=== PATIENT | male | born 1985 | race Asian ===

== ENCOUNTER 2020-01-17 14:50 | Emergency (ER) | payer OTHER ==
[~2020-01-17] VITALS: Ht 170.2 cm; Wt 81.6 kg
[2020-01-17 14:52] VITALS: BP 131/84
--- NOTE | 2020-01-17 15:27 | NUR ---
Patient discharged to home in stable condition. Written and verbal after care instructions given. Patient verbalizes understanding of instruction.
== END 2020-01-17 15:27 | disposition home or self-care (01) ==
LOC: ER 14:55
DX: Z03.818 Encounter for observation for suspected exposure to other biological agents ruled out (principal)
CPT/HCPCS: 99283; U0003

== ENCOUNTER 2020-03-14 16:57 | Emergency (ER) | payer OTHER ==
[~2020-03-14] VITALS: Ht 170.2 cm; Wt 81.6 kg
[2020-03-14 17:02] VITALS: BP 135/84
--- NOTE | 2020-03-14 17:10 | NUR ---
COVID SWAB OBTAINED AND SENT TO LAB.
--- NOTE | 2020-03-14 17:21 | NUR ---
Patient discharged to home in stable condition. Written and verbal after care instructions given. Patient verbalizes understanding of instruction.
== END 2020-03-14 17:22 | disposition home or self-care (01) ==
LOC: ER 17:03
DX: Z11.59 Encounter for screening for other viral diseases (principal)
CPT/HCPCS: 99283; C9803; U0003

== ENCOUNTER 2020-03-20 16:56 | Emergency (ER) | payer OTHER ==
[~2020-03-20] VITALS: Ht 170.2 cm; Wt 81.6 kg
[2020-03-20 16:57] VITALS: BP 132/80
--- NOTE | 2020-03-20 17:42 | NUR ---
Patient discharged to home in stable condition. Written and verbal after care instructions given. Patient verbalizes understanding of instruction. Pt ambulatory with a steady gait
== END 2020-03-20 17:43 | disposition home or self-care (01) ==
LOC: ER 16:56
DX: Z11.59 Encounter for screening for other viral diseases (principal)
CPT/HCPCS: 99283; C9803; U0003

== ENCOUNTER 2020-03-29 12:03 | Emergency (ER) | payer OTHER ==
[~2020-03-29] VITALS: Ht 170.2 cm; Wt 81.6 kg
[2020-03-29 12:15] VITALS: BP 137/79
== END 2020-03-29 13:01 | disposition home or self-care (01) ==
LOC: ER 12:04
DX: Z11.59 Encounter for screening for other viral diseases (principal)
CPT/HCPCS: 99283; C9803; U0003

== ENCOUNTER 2020-04-08 14:15 | Emergency (ER) | payer OTHER ==
[~2020-04-08] VITALS: Ht 170.2 cm; Wt 81.6 kg
[2020-04-08 14:18] VITALS: BP 128/84
--- NOTE | 2020-04-08 14:55 | NUR ---
COVID SWAB OBTAINED AND SENT TO LAB.
--- NOTE | 2020-04-08 14:56 | NUR ---
Patient discharged to home in stable condition. Written and verbal after care instructions given. Patient verbalizes understanding of instruction.
== END 2020-04-08 14:56 | disposition home or self-care (01) ==
LOC: ER 14:18
DX: Z20.828 Contact with and (suspected) exposure to other viral communicable diseases (principal)
CPT/HCPCS: 99283; C9803; U0003

== ENCOUNTER 2020-04-20 10:47 | Emergency (ER) | payer OTHER ==
[~2020-04-20] VITALS: Ht 170.2 cm; Wt 81.6 kg
[2020-04-20 10:54] VITALS: BP 124/74
== END 2020-04-20 11:20 | disposition home or self-care (01) ==
LOC: ER 10:50
DX: Z20.828 Contact with and (suspected) exposure to other viral communicable diseases (principal)
CPT/HCPCS: 99283; C9803; U0003

== ENCOUNTER 2020-04-25 10:39 | Emergency (ER) | payer OTHER ==
[~2020-04-25] VITALS: Ht 170.2 cm; Wt 81.6 kg
[2020-04-25 10:42] VITALS: BP 132/60
--- NOTE | 2020-04-25 10:50 | NUR ---
COVID SPECIMEN OBTAINED AND SENT TO LAB.
--- NOTE | 2020-04-25 10:55 | NUR ---
Patient discharged to home in stable condition. Written and verbal after care instructions given. Patient verbalizes understanding of instruction.
== END 2020-04-25 11:02 | disposition home or self-care (01) ==
LOC: ER 10:41
DX: Z20.828 Contact with and (suspected) exposure to other viral communicable diseases (principal)
CPT/HCPCS: 99283; C9803; U0003

== ENCOUNTER 2020-05-14 14:25 | Emergency (ER) | payer OTHER ==
[~2020-05-14] VITALS: Ht 170.2 cm; Wt 81.6 kg
[2020-05-14 14:31] VITALS: BP 120/70
--- NOTE | 2020-05-14 15:18 | NUR ---
COVID SWAB SENT
--- NOTE | 2020-05-14 15:18 | NUR ---
Patient discharged to home in stable condition. Written and verbal after care instructions given. Patient verbalizes understanding of instruction. Patient received verbal discharge instructions.
== END 2020-05-14 15:19 | disposition home or self-care (01) ==
LOC: ER 14:25
DX: Z20.828 Contact with and (suspected) exposure to other viral communicable diseases (principal)
CPT/HCPCS: 99283; C9803; U0003

== ENCOUNTER 2020-05-23 15:51 | Emergency (ER) | payer OTHER ==
[~2020-05-23] VITALS: Ht 157.5 cm; Wt 81.6 kg
[2020-05-23 16:00] VITALS: BP 127/71
== END 2020-05-23 18:14 | disposition home or self-care (01) ==
LOC: ER 15:55
DX: Z20.828 Contact with and (suspected) exposure to other viral communicable diseases (principal)
CPT/HCPCS: 99283; C9803; U0003

== ENCOUNTER 2020-05-29 08:59 | Emergency (ER) | payer OTHER ==
[~2020-05-29] VITALS: Ht 170.2 cm; Wt 81.6 kg
[2020-05-29 09:02] VITALS: BP 135/71
== END 2020-05-29 09:30 | disposition home or self-care (01) ==
LOC: ER 09:02
DX: Z20.828 Contact with and (suspected) exposure to other viral communicable diseases (principal)
CPT/HCPCS: 99283; C9803; U0003

== ENCOUNTER 2020-06-06 09:10 | Emergency (ER) | payer OTHER ==
[~2020-06-06] VITALS: Ht 170.2 cm; Wt 81.6 kg
[2020-06-06 09:27] VITALS: BP 131/80
== END 2020-06-06 09:51 | disposition home or self-care (01) ==
LOC: ER 09:17
DX: Z20.828 Contact with and (suspected) exposure to other viral communicable diseases (principal)
CPT/HCPCS: 99283; C9803; U0003

== ENCOUNTER 2020-06-11 16:08 | Emergency (ER) | payer OTHER ==
[~2020-06-11] VITALS: Ht 170.2 cm; Wt 81.6 kg
[2020-06-11 16:12] VITALS: BP 135/74
== END 2020-06-11 16:25 | disposition home or self-care (01) ==
LOC: ER 16:12
DX: Z20.828 Contact with and (suspected) exposure to other viral communicable diseases (principal)
CPT/HCPCS: 99283; C9803; U0003

== ENCOUNTER 2020-06-19 16:03 | Emergency (ER) | payer OTHER ==
[~2020-06-19] VITALS: Ht 170.2 cm; Wt 81.6 kg
[2020-06-19 16:09] VITALS: BP 128/75
--- NOTE | 2020-06-19 16:28 | NUR ---
COVID SWAB DONE AND SENT TO LAB
--- NOTE | 2020-06-19 16:43 | NUR ---
Donte yuen in ED - 06/19/20 at 1644 by SYLVIE Patient discharged to home in stable condition. Written and verbal after care instructions given. Patient verbalizes understanding of instruction.(ambulatory with a steady gait
--- NOTE | 2020-06-19 16:44 | NUR ---
Patient discharged to home in stable condition. Written and verbal after care instructions given. Patient verbalizes understanding of instruction. Pt ambulatory with a steady gait
== END 2020-06-19 16:44 | disposition home or self-care (01) ==
LOC: ER 16:03
DX: Z20.828 Contact with and (suspected) exposure to other viral communicable diseases (principal)
CPT/HCPCS: 99283; C9803; U0003

== ENCOUNTER 2020-07-05 08:42 | Emergency (ER) | payer OTHER ==
[~2020-07-05] VITALS: Ht 170.2 cm; Wt 81.6 kg
[2020-07-05 08:45] VITALS: BP 132/80
== END 2020-07-05 09:00 | disposition home or self-care (01) ==
LOC: ER 08:43
DX: Z20.828 Contact with and (suspected) exposure to other viral communicable diseases (principal)
CPT/HCPCS: 99283; C9803; U0003

== ENCOUNTER 2020-07-12 08:05 | Emergency (ER) | payer OTHER ==
[~2020-07-12] VITALS: Ht 170.2 cm; Wt 81.6 kg
[2020-07-12 08:07] VITALS: BP 130/84
== END 2020-07-12 08:29 | disposition home or self-care (01) ==
LOC: ER 08:06
DX: Z20.828 Contact with and (suspected) exposure to other viral communicable diseases (principal)
CPT/HCPCS: 99283; C9803; U0003

== ENCOUNTER 2020-07-17 09:47 | Emergency (ER) | payer OTHER ==
[~2020-07-17] VITALS: Ht 170.2 cm; Wt 81.6 kg
[2020-07-17 09:47] VITALS: BP 134/82
--- NOTE | 2020-07-17 10:15 | NUR ---
COVID SWAB SENT. Patient discharged to home in stable condition. Written and verbal after care instructions given. Patient verbalizes understanding of instruction.
== END 2020-07-17 10:15 | disposition home or self-care (01) ==
LOC: ER 09:49
DX: Z20.828 Contact with and (suspected) exposure to other viral communicable diseases (principal)
CPT/HCPCS: 99283; C9803; U0003

== ENCOUNTER 2020-07-24 10:02 | Emergency (ER) | payer OTHER ==
[~2020-07-24] VITALS: Ht 170.2 cm; Wt 81.6 kg
[2020-07-24 10:06] VITALS: BP 137/76
--- NOTE | 2020-07-24 10:32 | NUR ---
Patient discharged to home in stable condition. Written and verbal after care instructions given. Patient verbalizes understanding of instruction.
== END 2020-07-24 10:32 | disposition home or self-care (01) ==
LOC: ER 10:03
DX: Z20.828 Contact with and (suspected) exposure to other viral communicable diseases (principal)
CPT/HCPCS: 99283; C9803; U0003

== ENCOUNTER 2020-08-05 15:52 | Emergency (ER) | payer OTHER ==
[~2020-08-05] VITALS: Ht 170.2 cm; Wt 79.4 kg
[2020-08-05 15:57] VITALS: BP 131/71
--- NOTE | 2020-08-05 16:41 | NUR ---
covid swab test collected and sent to the lab.
--- NOTE | 2020-08-05 16:45 | NUR ---
Patient discharged to home in stable condition. Written and verbal after care instructions given. Patient verbalizes understanding of instruction.
--- NOTE | 2020-08-06 22:44 | NUR ---
LAB CALLED REGARDING NEGATIVE COVID RESULT
== END 2020-08-05 16:45 | disposition home or self-care (01) ==
LOC: ER 16:00
DX: Z20.828 Contact with and (suspected) exposure to other viral communicable diseases (principal)
CPT/HCPCS: 99283; C9803; U0003

== ENCOUNTER 2020-08-11 15:24 | Emergency (ER) | payer OTHER ==
[~2020-08-11] VITALS: Ht 170.2 cm; Wt 79.4 kg
[2020-08-11 15:31] VITALS: BP 125/72
--- NOTE | 2020-08-11 16:15 | NUR ---
covid swab done and sent to lab
--- NOTE | 2020-08-11 16:15 | NUR ---
Patient discharged to home in stable condition. Written and verbal after care instructions given. Patient verbalizes understanding of instruction. Pt ambulatory with a steady gait
== END 2020-08-11 16:17 | disposition home or self-care (01) ==
LOC: ER 15:24
DX: Z20.828 Contact with and (suspected) exposure to other viral communicable diseases (principal)
CPT/HCPCS: 99283; C9803; U0003

== ENCOUNTER 2020-08-18 18:18 | Emergency (ER) | payer OTHER ==
[~2020-08-18] VITALS: Ht 170.2 cm; Wt 81.6 kg
[2020-08-18 18:31] VITALS: BP 130/70
--- NOTE | 2020-08-18 18:52 | NUR ---
Patient discharged to home in stable condition. Written and verbal after care instructions given. Patient verbalizes understanding of instruction.
== END 2020-08-18 18:51 | disposition home or self-care (01) ==
LOC: ER 18:19
DX: Z20.828 Contact with and (suspected) exposure to other viral communicable diseases (principal)
CPT/HCPCS: 99283; C9803; U0003

== ENCOUNTER 2020-08-30 17:27 | Emergency (ER) | payer OTHER ==
[~2020-08-30] VITALS: Ht 170.2 cm; Wt 81.6 kg
[2020-08-30 17:32] VITALS: BP 135/79
== END 2020-08-30 17:39 | disposition home or self-care (01) ==
LOC: ER 17:27
DX: Z20.822 Contact with and (suspected) exposure to COVID-19 (principal)
CPT/HCPCS: 99283; C9803; U0003

== ENCOUNTER → 2020-08-30 | Emergency (ER) | payer OTHER | END | disposition left against medical advice (07) | LOC: ER 17:55 | DX: Z75.3 Unavailability and inaccessibility of health-care facilities (principal) ==

== ENCOUNTER 2020-09-06 17:21 | Emergency (ER) | payer OTHER ==
[~2020-09-06] VITALS: Ht 172.7 cm; Wt 86.2 kg
[2020-09-06 17:25] VITALS: BP 134/77
--- NOTE | 2020-09-06 18:51 | NUR ---
COVID SWAB SENT. Patient discharged to home in stable condition. Written and verbal after care instructions given. Patient verbalizes understanding of instruction.
== END 2020-09-06 18:52 | disposition home or self-care (01) ==
LOC: ER 17:23
DX: Z20.822 Contact with and (suspected) exposure to COVID-19 (principal)
CPT/HCPCS: 99283; C9803; U0003

== ENCOUNTER 2020-09-08 16:40 | Emergency (ER) | payer OTHER ==
[~2020-09-08] VITALS: Ht 165.1 cm; Wt 85.7 kg
[2020-09-08 16:48] VITALS: BP 134/81
--- NOTE | 2020-09-08 16:54 | NUR ---
COVID SWAB SENT. Patient discharged to home in stable condition. Written and verbal after care instructions given. Patient verbalizes understanding of instruction.
== END 2020-09-08 16:55 | disposition home or self-care (01) ==
LOC: ER 16:41
DX: Z20.822 Contact with and (suspected) exposure to COVID-19 (principal)
CPT/HCPCS: 99283; C9803; U0003

== ENCOUNTER 2020-09-28 16:10 | Emergency (ER) | payer OTHER ==
[~2020-09-28] VITALS: Ht 170.2 cm; Wt 81.6 kg
[2020-09-28 16:12] VITALS: BP 123/59
--- NOTE | 2020-09-28 16:35 | NUR ---
COVID SWAB DONE AND SENT TO LAB
--- NOTE | 2020-09-28 16:36 | NUR ---
Patient discharged to home in stable condition. Written and verbal after care instructions given. Patient verbalizes understanding of instruction. Pt ambulatory with a steady gait
== END 2020-09-28 16:36 | disposition home or self-care (01) ==
LOC: ER 16:11
DX: Z20.822 Contact with and (suspected) exposure to COVID-19 (principal)
CPT/HCPCS: 99283; C9803; U0003

== ENCOUNTER 2020-10-02 16:50 | Emergency (ER) | payer OTHER ==
[~2020-10-02] VITALS: Ht 167.6 cm; Wt 81.6 kg
[2020-10-02 16:54] VITALS: BP 132/60
--- NOTE | 2020-10-02 17:20 | NUR ---
covid swab sent. Patient discharged to home in stable condition. Written and verbal after care instructions given. Patient verbalizes understanding of instruction.
== END 2020-10-02 17:21 | disposition home or self-care (01) ==
LOC: ER 16:51
DX: Z20.822 Contact with and (suspected) exposure to COVID-19 (principal)
CPT/HCPCS: 99283; C9803; U0003

== ENCOUNTER 2020-10-11 16:32 | Emergency (ER) | payer OTHER ==
[~2020-10-11] VITALS: Ht 170.2 cm; Wt 81.6 kg
[2020-10-11 16:35] VITALS: BP 132/80
--- NOTE | 2020-10-11 16:50 | NUR ---
covid swab done and sent to lab
--- NOTE | 2020-10-11 16:51 | NUR ---
Patient discharged to home in stable condition. Written and verbal after care instructions given. Patient verbalizes understanding of instruction. Pt ambulatory with a steady gait
== END 2020-10-11 16:51 | disposition home or self-care (01) ==
LOC: ER 16:36
DX: Z20.822 Contact with and (suspected) exposure to COVID-19 (principal)
CPT/HCPCS: 99283; C9803; U0003

== ENCOUNTER 2020-10-16 17:00 | Emergency (ER) | payer OTHER ==
[~2020-10-16] VITALS: Ht 170.2 cm; Wt 79.4 kg
[2020-10-16 17:10] VITALS: BP 135/75
--- NOTE | 2020-10-16 17:26 | NUR ---
swab done and sent to lab
--- NOTE | 2020-10-16 17:26 | NUR ---
Patient discharged to home in stable condition. Written and verbal after care instructions given. Patient verbalizes understanding of instruction. Pt ambulatory with a steady gait
== END 2020-10-16 17:32 | disposition home or self-care (01) ==
LOC: ER 17:02
DX: Z20.822 Contact with and (suspected) exposure to COVID-19 (principal)
CPT/HCPCS: 99283; C9803; U0003

== ENCOUNTER 2020-11-22 16:23 | Emergency (ER) | payer OTHER ==
[~2020-11-22] VITALS: Ht 170.2 cm; Wt 81.6 kg
[2020-11-22 16:28] VITALS: BP 135/82
== END 2020-11-22 16:42 | disposition home or self-care (01) ==
LOC: ER 16:25
DX: Z20.822 Contact with and (suspected) exposure to COVID-19 (principal)
CPT/HCPCS: 99283; C9803; U0003

== ENCOUNTER 2021-01-24 14:10 | Emergency (ER) | payer OTHER ==
[~2021-01-24] VITALS: Ht 170.2 cm; Wt 90.7 kg
[2021-01-24 14:12] VITALS: BP 135/73
--- NOTE | 2021-01-24 14:39 | NUR ---
Patient discharged to home in stable condition. Written and verbal after care instructions given. Patient verbalizes understanding of instruction. Pt ambulatory with a steady gait
--- NOTE | 2021-01-24 14:39 | NUR ---
COVID SWAB DONE AND SENT TO LAB
== END 2021-01-24 14:40 | disposition home or self-care (01) ==
LOC: ER 14:11
DX: Z20.822 Contact with and (suspected) exposure to COVID-19 (principal)
CPT/HCPCS: 99283; C9803; U0003